=== PATIENT | female | born 1990 ===

== ENCOUNTER 2017-02-17 23:00 | Emergency (ER) | payer SELFPAY ==
[2017-02-17 23:01] VITALS: BMI 27.3
[2017-02-17 23:11] VITALS: BP 120/77; PULSE 91; RESP 16; TEMP 98.7; O2SAT 100
--- NOTE | 2017-02-17 23:33 | ED PDOC ---
HPI: Abdomen Time Seen by Provider: 02/17/17 23:14 Chief Complaint (Nursing): Abdominal Pain Chief Complaint (Provider): Abdominal Pain History Per: Patient History/Exam Limitations: no limitations Onset/Duration Of Symptoms: Hrs (x13 hours), Gradual (Pain worsening over time) Outside of [place] travel?: No Current Symptoms Are (Timing): Still Present Quality Of Discomfort: "Pain" Additional Complaint(s): 27 year old female presents to ED with complaints of abdominal pain x13 hours and is currently 18 weeks .Patient notes a past medical history of kidney stones and is . States that she was seen at [facility] earlier today for the same complaint and that the US taken there was read as normal. Notes that the pain has progressively worsened over time. (-) vaginal bleeding or discharge. PCP: None Abnormal Vaginal Bleeding: No : 4 Para: 3 Past Medical History Reviewed: Historical Data, Nursing Documentation, Vital Signs Vital Signs: Last Vital Signs Temp 98.7 F 02/17/17 23:05 Pulse 91 H 02/17/17 23:05 Resp 16 02/17/17 23:05 BP 120/77 02/17/17 23:05 Pulse Ox 100 02/18/17 00:53 - Medical History PMH: Kidney Stones Denies: HIV, Chronic Kidney Disease - Surgical History Surgical History: No Surg Hx - Family History Family History: States: No Known Family Hx - Social History Current smoker - smoking cessation education provided: No Ex-Smoker (has not smoked in the last 12 months): No Alcohol: None Drugs: Denies - Immunization History Hx Tetanus Toxoid Vaccination: No Hx Influenza Vaccination: No Hx Pneumococcal Vaccination: No - Home Medications Home Medications: Ambulatory Orders Medication Instructions Recorded Naproxen Sodium [Naprelan] 500 mg PO Q12 PRN #20 ter 06/24/14 Naproxen [Naprosyn Tab] 500 mg PO BID PRN #20 tab 06/17/15 oxyCODONE/Acetaminophen [Percocet 1 tab PO Q6H PRN #15 tab 06/17/15 5/325 mg Tab] Famotidine [Pepcid] 20 mg PO DAILY #20 tab 09/14/16 Ciprofloxacin [Cipro] 500 mg PO BID #10 tab 09/15/16 - Allergies Allergies/Adverse Reactions: Allergies Allergy/AdvReac Type Severity Reaction Status Date / Time No Known Allergies Allergy Verified 06/17/15 13:06 Review of Systems ROS Statement: Except As Marked, All Systems Reviewed And Found Negative Gastrointestinal: Positive for: Abdominal Pain Genitourinary Female: Negative for: Vaginal Discharge, Vaginal Bleeding Physical Exam - Reviewed Nursing Documentation Reviewed: Yes Vital Signs Reviewed: Yes - Physical Exam Appears: Positive for: Non-toxic, Uncomfortable Skin: Positive for: Normal Color, Warm, Dry Eye Exam: Positive for: Normal appearance ENT: Positive for: Normal ENT Inspection Cardiovascular/Chest: Positive for: Regular Rate, Rhythm. Negative for: Murmur Respiratory: Positive for: Normal Breath Sounds. Negative for: Respiratory Distress Gastrointestinal/Abdominal: Positive for: Soft, Tenderness (suprapubic tenderness) Back: Positive for: Normal Inspection Extremity: Positive for: Normal ROM. Negative for: Deformity Neurologic/Psych: Positive for: Alert, Oriented. Negative for: Motor/Sensory Deficits - Laboratory Results Result Diagrams: 02/18/17 00:20 02/18/17 00:20 - ECG O2 Sat by Pulse Oximetry: 100 (RA) Pulse Ox Interpretation: Normal Medical Decision Making Medical Decision Makin Initial impression: abdominal pain in 2nd trimester of Initial plan: * BETA HCG QUANT * Labs * UA * US OB PREG, LIMITED 0031 US FINDINGS Fetus: Single live intrauterine gestation. Heart rate: heart rate of 142 beats per minute. Presentation: Cephalic. Placenta: Posterior fundal. No placenta previa or abruption. Amniotic fluid: Normal. Anatomy: No gross anomaly is appreciated. BIOMETRICS Gestational age by US: Estimated gestational age of 19 weeks 4 days by measurements. EFW: Estimated weight of 305 g. BPD: 4.5 cm, correlating with 19 weeks 4 days. HC: 16.5 cm, correlating with 19 weeks 2 days. AC: 13.0 cm, correlating with 18 weeks 4 days. FL: 3.5 cm, correlating with 21 weeks 0 days. MATERNAL: Uterus: Unremarkable. No myometrial mass. Cervix: No cervical dilatation or effacement. Adnexa: Ovaries not visualized. No adnexal masses. Free fluid: No significant free fluid. IMPRESSION: 1. Single live intrauterine gestation. 2. Incidental/non-acute findings are described above. [address] Dean, who will evaluate patient upstairs as patient has had 2 ED visits within 24 hours for persistent abdominal pain and is almost 20 weeks . Labs: no clinically significant abnormalities Dx: Abdominal pain and Scribe Attestation: Documented by Sariah Onofre acting as a scribe for Jorge Villasenor MD. Scribe Attestation: All medical record entries made by the Scribe were at my direction and personally dictated by me. I have reviewed the chart and agree that the record accurately reflects my personal performance of the history, physical exam, medical decision making, and the department course for this patient. I have also personally directed, reviewed, and agree with the discharge instructions and disposition. Disposition - Clinical Impression Clinical Impression: Abdominal pain during Discussed With Dr.: Marilee Roblero Doctor Will See Patient In The: Hospital Counseled Patient/Family Regarding: Studies Performed - Disposition Disposition: Routine/Home Disposition Time: 00:51 Condition: STABLE Instructions: Abdominal Pain in (ED) Print Language: THAI
[2017-02-18 00:26] LABS: RBC URINE 1 /hpf (0-3); URINE BACTERIA RARE (<OCC); URINE BILIRUBIN NEGATIVE (NEGATIVE); URINE BLOOD SMALL (NEGATIVE); URINE COLOR COLORLESS (YELLOW); URINE GLUCOSE (UA) NEG (Normal); URINE KETONE NEGATIVE (NEGATIVE); URINE LEUKOCYTE ESTERASE NEG Leu/uL (Negative); URINE PROTEIN NEGATIVE (NEGATIVE); URINE UROBILINOGEN 0.2-1.0 mg/dL (0.2-1.0); WBC URINE 1 /hpf (0-5)
--- NOTE | 2017-02-18 00:31 | US ---
EXAM: US After First Trimester, Transabdominal CLINICAL HISTORY: 27 years old, female; Pain; Other: Generalized abd pain; Gestational age or lmp: 10/13/16; ; Additional info: Abd pain preg TECHNIQUE: Real-time transabdominal obstetrical ultrasound of the maternal pelvis and a second or third trimester with image documentation. COMPARISON: No relevant prior studies available. FINDINGS: Fetus: Single live intrauterine gestation. Heart rate: heart rate of 142 beats per minute. Presentation: Cephalic. Placenta: Posterior fundal. No placenta previa or abruption. Amniotic fluid: Normal. Anatomy: No gross anomaly is appreciated. BIOMETRICS Gestational age by US: Estimated gestational age of 19 weeks 4 days by measurements. EFW: Estimated weight of 305 g. BPD: 4.5 cm, correlating with 19 weeks 4 days. HC: 16.5 cm, correlating with 19 weeks 2 days. AC: 13.0 cm, correlating with 18 weeks 4 days. FL: 3.5 cm, correlating with 21 weeks 0 days. MATERNAL: Uterus: Unremarkable. No myometrial mass. Cervix: No cervical dilatation or effacement. Adnexa: Ovaries not visualized. No adnexal masses. Free fluid: No significant free fluid. IMPRESSION: 1. Single live intrauterine gestation. 2. Incidental/non-acute findings are described above.
[2017-02-18 00:37] LABS: BASO % 0.4 % (0.0-2.0); EOS # 0.4 K/uL (0.0-0.7); EOS % 3.9 % (0.0-4.0); LYMPH # 3.1 K/uL (1.0-4.3); LYMPH % 31.1 % (20.0-40.0); MEAN CELL VOLUME 92.1 fl (81.0-99.0); MEAN CORPUSCULAR HGB CONC 33.6 g/dL (33.0-37.0); MEAN PLATELET VOLUME 9.3 fl (7.2-11.7); MONO # 0.9 K/uL (0.0-0.8); MONO % 9.3 % (0.0-10.0); NEUT # 5.5 K/uL (1.8-7.0); NEUT % 55.3 % (50.0-75.0); RED CELL DISTRIBUTION WIDTH 13.2 % (11.5-14.5)
[2017-02-18 00:50] LABS: ALB/GLOB RATIO 1.3 (1.0-2.1); ALKALINE PHOSPHATASE 88 U/L (38-126); ALT/SGPT 45 U/L (9-52); AST/SGOT 26 U/L (14-36); BILIRUBIN,TOTAL 0.2 mg/dl (0.2-1.3); BLOOD UREA NITROGEN 10 mg/dl (7-17); CALCIUM 9.1 mg/dL (8.4-10.2); CARBON DIOXIDE 24 mmol/L (22-30); CHLORIDE 106 mmol/L (98-107); GFR AFRICAN-AMERICAN > 60; GLUCOSE,RANDOM 80 mg/dL (65-105); POTASSIUM 3.9 MMOL/L (3.6-5.0); SODIUM 137 mmol/l (132-148); TOTAL PROTEIN 6.4 G/DL (6.3-8.2)
[2017-02-18] MEDS ORDERED: Oxycodone/Acetaminophen 5/325 mg Tab PO ONE (01:56)
--- NOTE | 2017-02-18 16:21 | OBHP ---
Datetime: 02/18/2017 01:57 IP Adm Impression: , intrauterine IP Chief Complaint Other: vaginal pressure IP Admit Plan: Observation/Evaluation; Discharge home Admit Comment, IP Provider: 27 y/o @ 18.2 weeks based on lmp confirmed by 10 week U/S presen ts w/ vaginal pressure. The patient was seen earlier yesterday at [facility] for similar complaints. The patient reports vaginal pressure that occurs every 5-10 minutes, radiates to her back, and with intensity of 5/10. The patient denies VB, LOF, headaches, chest pain, sOB, n/v/d, dysuria, and fever s. Clinic: [facility] allergies: NKDA PMH: none PSH: none OBHx: x3 (13 yrs, 11, yrs, 9 yrs), 1st born premature @ 30-32 weeks discharged in 3 days, othe r 2 were FT; all born in [place] SOC: denies smoking, alcohol, and drugs O: CV: RRR Resp: CTA bl A: 27 y/o @ 18.2 wks presents w/ vaginal pressure P: observe and evaluate continuous monitoring pain management w/ percocet re-evaluate in 1 hour 05:14 no pain PTL precautions given has appointment 02/19/2017 @ 08:45 Discharge home Santana Hall MD Chief Maintenance Supervisor [facility] ADDENDUM: pt seen _ examined. agree with above assessment and plan. pt initially seen and evaluated in ED o f [facility] with neg work up. pt then referred to [facility] for further eval. p: d/c home f/u in ob clinic as sched Pelvic Type - PN: Not Done Extremities - PN: Normal Abdomen - PN: Normal Back - PN: Not Done Breast - PN: Not Done Lungs - PN: Normal Heart - PN: Normal Thyroid - PN: Not Done Neurologic - PN: Normal HEENT - PN: Normal General - PN: Normal EGA AdmitDate IP: 18.2 Vital Signs Provider: Within Normal Limits IP Chief Complaint: Other Genitourinary Exam: Normal DTRs - PN: Not Done
== END 2017-02-18 05:15 | disposition home or self-care (01) ==
LOC: H.ER 23:00 → H.L&D 02-18 01:25 → H.ER 02-18 05:15
DX: Z87.442 Personal history of urinary calculi (principal); R10.2 Pelvic and perineal pain; Z33.1 Pregnant state, incidental; Z3A.18 18 weeks gestation of pregnancy